=== PATIENT | male | born 1970 | race Two or more races ===

== ENCOUNTER 2025-03-09 10:58 | Emergency (ER) | payer BC, SELFPAY ==
[2025-03-09] VITALS (11 sets, daily range): BP systolic 142–174; BP diastolic 92–123; PULSE 66–78; TEMP 36.4; O2SAT 96–99; BMI 30.5
--- NOTE | 2025-03-09 11:06 | XR_ITS ---
The [place] [id number] Patient Name: JOSEFINA MERRITT MRN: [id number] date: 1970 Sex: M Assigned Patient Location: ED.MAIN Current Patient Location: ED.MAIN Accession/Order Number: [id number] Exam Date: 03/09/2025 11:20 Report Date: 03/09/2025 11:45 At the request of: SLUEMAN KAHN MD Procedure: XR chest 1V PORTABLE AP ERECT CHEST 0710 hours CLINICAL HISTORY: Chest pain today COMPARISON: None A large defibrillator pad overlies the central left chest. The heart is top normal in size. There is no vascular congestion. No consolidation is seen. There is no effusion or pneumothorax. The osseous structures are intact. XR/XR chest 1V IMPRESSION: NO ACUTE FINDINGS Impression dictated by: Faye Galeas M.D. 03/09/2025 11:45 AM Dictation Location: [place] [address] Electronically authenticated by: [id number] Y Date: 03/09/2025 11:45
--- NOTE | 2025-03-09 11:06 | ECG_ITS ---
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 Measurements Intervals [place] Rate: 63 P: 47 NC: 198 QRS: -4 QRSD: 110 T: 80 QT: 392 QTc: 400 Interpretive Statements 1100 Sinus rhythm 4136 Possible anterior injury or acute infarct 4636 Possible inferior injury or acute infarct STEMI 9150 abnormal ECG No previous ECG available for comparison Electronically Signed On 03-09-2025 13:16:29 EDT by GLEN DALEY M.D.
--- OUTSIDE RECORDS SUMMARY | 2025-03-09 11:14 | XMS_ITS | Clinical Summary ---
Author Organization [employer] tem Address [facility] [place]-[id number] [address] [place] [address] Care Team Providers Care Retail Security Professional Name Role Phone Radha Evangelista MD Primary Care Provider [phone] Allergies Active Allergy Reactions Criticality Noted Date Comments No Known Drug Allergies 10/17/2016 Medications albuterol (PROVENTIL HFA;VENTOLIN HFA) 90 mcg/actuation inhaler Inhale 2 puffs every 4 (four) hours as needed. 5 Active fexofenadine (EDWARDO) 180 mg tabletIndications :Acute bronchitis, unspecified organism Take 1 tablet (180 mg total) by mouth in the morning. 30 tablet 5 Active famotidine (PEPCID) 40 mg tabletIndications :Persistent cough for 3 weeks or longer TAKE 1 TABLET BY MOUTH EVERY DAY AT NIGHT 90 tablet 5 Active lisinopriL (PRINIVIL,ZESTRIL ) 10 mg tabletIndications :Essential hypertension TAKE 1 TABLET (10 MG TOTAL) BY MOUTH IN THE MORNING 90 tablet 1 5 Active Active Problems Problem Noted Date Diagnosed Date Persistent cough for 3 weeks or longer 5 Assessment & Plan (11/27/2024 11:51 PM EDT): Continue with fexofenadine 180 mg 1 tablet daily for allergy symptoms. Description of symptoms suggestive of silent reflux with dry mouth, sore throat and cough when lays down, start on famotidine 40 mg nightly to help with acid reduction If symptoms persist despite treatment will consider pulmonary function testing or inhaled steroids to help with symptoms Acute bronchitis 08/20/2024 Assessment & Plan (09/04/2024 11:36 PM EDT): Persistent symptoms with wheezing and dyspnea. Given depomedrol 40 mg IM in right buttock today in office then start on medrol dosepak following directions. Start on doxycycline 100 mg 1 tablet twice daily for 7 days and edwardo 180 mg 1 tablt daily for upper respiratory symptoms. Given samples of OTC cough medication and tessalon perles to take for cough suppression Assessment & Plan (08/20/2024 2:22 PM EDT): Patient already taking antibiotic amoxicillin for on different condition. There is no reason at this time to prescribe a different antibiotic. Patient to start on oral prednisone 20 mg 1 tablet daily for 5 days for inflammation the bronchial tubes. Use Mucinex DM or other ouri-gfn-mrnqxfu cough suppressants as needed for symptom control. Use albuterol inhaler 2 puffs every 6 hours as needed for wheezing, shortness of breath Hypertension 11/07/2016 Seasonal allergic rhinitis due to pollen 017 Allergic 10/17/2016 Encounters Date Type Department Care Team Description 01/17/2025 Refill [facility] [address] [place] [phone] Radha Evangelista MD Essential hypertension 12/20/2024 Refill [facility] [address] [place] [address] [place] [phone] Morgan De Santiago, DO Persistent cough for 3 weeks or longer from Last 3 Months Immunizations Immunization Administration Dates Next Due Influenza, Injectable, quadr ivalent (PF) 04/09/2023,06/06/2021,02/24/2020,2017 Family History Medical History Relation Name Comments Asthma Father Diabetes Mother Heart disease Mother Hypertension Mother Relation Name Status Comments Father Alive Mother Alive Social History Tobacco Use Types Packs/Day Years Used Date Smoking Tobacco: Never Smokeless Tobacco: Never Tobacco Cessation:Counseling Given: Not Answered Alcohol Use Standard Drinks/Week Comments Yes 0 (1 standard drink = 0.6 oz pur e alcohol) occasional PHQ-2 Answer Date Recorded Total Score 0 11/27/2024 Childcare Answer Date Recorded Childcare Unknown 11/06/2018 Employment Answer Date Recorded Employment Unknown 11/06/2018 Hunger Screening Answer Date Recorded Within the past 12 months we worried whether our food would run out before we got money to buy more. Never True 11/27/2024 Within the past 12 months th e food we bought just didn't last and we didn't have money to get more. Never True 11/27/2024 Purpose - Life Answer Date Recorded Purpose and direction in life Unknown Sex and Gender Information Value Date Recorded Sex Assigned at Not on file Legal Sex Male 11:58 AM EDT Gender Identity Not on file Sexual Orientation Not on file Last Filed Vital Signs Vital Sign Reading Time Taken Comments Blood Pressure 128/80 11/27/2024 3:00 PM EDT Pulse 84 11/27/2024 3:00 PM EDT Temperature 36.7 C (98.1 F) 11/27/2024 3:00 PM EDT Respiratory Rate 18 04/09/2023 8:08 AM EST Oxygen Saturation 98% 11/27/2024 3:00 PM EDT Inhaled Oxygen Concentration - - Weight 90.5 kg (199 lb 9.6 oz) 11/27/2024 3:00 P M EDT Height 157.5 cm (5' 2.01 ) 11/27/2024 3:00 PM ED T Body Mass Index 36.5 11/27/2024 3:00 PM EDT Plan of Treatment Health Maintenance Due Date Last Done Comments Adult BMI Follow Up Plan 1987 DTaP,Tdap and Td Vaccines (1 - Tdap) 1988 Zoster (Shingles) Vaccine (1 of 2) 2019 COVID-19 Vaccine (3 - 2024-2 6 season) 2025 01/03/2021, 12/12/2020 Influenza Vaccine 01/26/2025 04/09/2023, , 02/24/2020, Additional history exists Tobacco Screening 09/04/2025 09/04/2024 Adult BMI Screening 11/27/2025 11/27/2024 Depression Screening 11/27/2025 11/27/2024 Medical Devices Not on file Insurance ANTHEM Care Teams Retail Security Professional Relationship Specialty Start Date End Date Radha Evangelista MD [address] [place] [address] PCP - General Internal Medicine 04/09/23
--- OUTSIDE RECORDS SUMMARY | 2025-03-09 11:14 | XMS_ITS | Encounter Summary ---
Author Organization [employer] Address [facility]-[id number] [address] [place] [address] Care Team Providers Care Engine Lathe Operator Name Role Phone Radha Evangelista MD Primary Care Provider [phone] Encounter Details Date Type Department Care Team (Late st Contact Info) Description 05/11/2021 Telephone [facility] [address] [place] [address] Geovanna White CMA Social History Tobacco Use Types Packs/Day Years Used Date Smoking Tobacco: Never Smokeless Tobacco: Never Alcohol Use Standard Drinks/Week Comments Yes 0 (1 standard drink = 0.6 oz pur e alcohol) occasional PHQ-2 Answer Date Recorded Total Score 0 06/02/2020 Childcare Answer Date Recorded Childcare Unknown 11/06/2018 Employment Answer Date Recorded Employment Unknown 11/06/2018 Purpose - Life Answer Date Recorded Purpose and direction in life Unknown Sex and Gender Information Value Date Recorded Sex Assigned at Not on file Legal Sex Male 11:58 AM EDT Gender Identity Not on file Sexual Orientation Not on file COVID-19 Exposure Response Date Recorded In the last month, have you been in contact with someone who was confirmed or suspected to have Coronavirus / COVID-19? No / Unsure 04/30/2021 9:00 AM EST documented as of this encounter Miscellaneous Notes * Telephone Encounter - Geovanna White CMA - 05/11/2021 3:50 PM EST ----- Message from TAWNY Hameed sent at 05/04/2021 1:43 PM EST ----- Cholesterol slightly elevated at 204- concentrate on a low fat diet & exercise; glucose elevated at 113- patient should limit his carbohydrates and we will check his A1C at his appointment in May * Telephone Encounter - Geovanna White CMA - 05/11/2021 3:50 PM EST lvm for patient to call me back. documented in this encounter Plan of Treatment Not on file documented as of this encounter Visit Diagnoses Not on filedocumented in this encounter Additional Health Concerns Assessment Noted Time PHQ-9 Depression Total Score: 0 06/02/19 21 1:00 PM EST documented as of this encounter Care Teams Engine Lathe Operator Relationship Specialty Start Date End Date Radha Evangelista MD [address] [facility] [address] PCP - General Internal Medicine 04/09/23 documented as of this encounter
--- OUTSIDE RECORDS SUMMARY | 2025-03-09 11:14 | XMS_ITS | Encounter Summary ---
Author Organization [facility] Address [facility]-[id number] [address] [place] [address] Care Team Providers Care Professor Of Visual Arts Name Role Phone Radha Evangelista MD Primary Care Provider [phone] Reason for Visit * Reason Comments Med Refill Encounter Details Date Type Department Care Team (Late st Contact Info) Description 08/01/2022 Refill [facility] [address] [place] [address] [place] [phone] Jazzmine Aldana APRN-CNP [address] [place] [address] [address] [place] [id number] Essential hypertension Social History Tobacco Use Types Packs/Day Years Used Date Smoking Tobacco: Never Smokeless Tobacco: Never Alcohol Use Standard Drinks/Week Comments Yes 0 (1 standard drink = 0.6 oz pur e alcohol) occasional PHQ-2 Answer Date Recorded Total Score 0 10/20/2021 Childcare Answer Date Recorded Childcare Unknown 11/06/2018 Employment Answer Date Recorded Employment Unknown 11/06/2018 Purpose - Life Answer Date Recorded Purpose and direction in life Unknown Sex and Gender Information Value Date Recorded Sex Assigned at Not on file Legal Sex Male 11:58 AM EDT Gender Identity Not on file Sexual Orientation Not on file documented as of this encounter Miscellaneous Notes * Telephone Encounter - TAWNY Hameed - 08/01/2022 12:23 AM EST Patient missed his last appointment and will need to schedule an appointment before the 30 day Rx runs out * Telephone Encounter - Johanne Garcia CMA - 08/01/2022 12:23 AM EST Tried to call patient but no answer so I left a voicemail. documented in this encounter Plan of Treatment Not on file documented as of this encounter Visit Diagnoses Diagnosis Essential hypertension Unspecified essential hypertension documented in this encounter Additional Health Concerns Assessment Noted Time PHQ-9 Depression Total Score: 0 10/21/19 22 4:11 PM EDT documented as of this encounter Care Teams Professor Of Visual Arts Relationship Specialty Start Date End Date Radha Evangelista MD [address] [facility] [address] PCP - General Internal Medicine 04/09/23 documented as of this encounter
--- OUTSIDE RECORDS SUMMARY | 2025-03-09 11:14 | XMS_ITS | Encounter Summary ---
Author Organization [employer] Address [facility] [place]-[id number] [address] [place] [address] Care Team Providers Care Breastfeeding Peer Counselor Name Role Phone Radha Evangelista MD Primary Care Provider [phone] Encounter Details Date Type Department Care Team (Late st Contact Info) Description 05/04/2021 Telephone [facility] [address] [place] [address] [place] [address] Geovanna White CMA Social History [...] Telephone Encounter - Geovanna White CMA - 05/04/2021 3:35 PM EST ----- Message from TAWNY Hameed sent at 05/04/2021 1:43 PM EST ----- Cholesterol slightly elevated at 204- concentrate on a low fat diet & exercise; glucose elevated at 113- patient should limit his carbohydrates and we will check his A1C at his appointment in May * Telephone Encounter - Geovanna White CMA - 05/04/2021 3:35 PM EST lvm for patient to call us back for results. * Telephone Encounter - Geovanna White CMA - 05/04/2021 3:35 PM EST ----- Message from TAWNY Hameed sent at 05/04/2021 1:43 PM EST ----- Cholesterol slightly elevated at 204- concentrate on a low fat diet & exercise; glucose elevated at 113- patient should limit his carbohydrates and we will check his A1C at his appointment in May * Telephone Encounter - Geovanna White CMA - 05/04/2021 3:35 PM EST lvm for patient to call back. documented in this encounter Plan of Treatment Not on file documented as of this encounter Visit Diagnoses Not on filedocumented in this encounter Additional Health Concerns Assessment Noted Time PHQ-9 Depression Total Score: 0 06/02/19 21 1:00 PM EST documented as of this encounter Care Teams Breastfeeding Peer Counselor Relationship Specialty Start Date End Date Radha Evangelista MD [address] [place] [address] PCP - General Internal Medicine 04/09/23 documented as of this encounter
--- OUTSIDE RECORDS SUMMARY | 2025-03-09 11:14 | XMS_ITS | Encounter Summary ---
Author Organization [facility] [facility] Address [id number] [address] [place] [address] Care Team Providers Care Nutrition Manager Name Role Phone Radha Evangelista MD Primary Care Provider [phone] Reason for Visit * Reason Comments Med Refill Encounter Details Date Type Department Care Team (Late st Contact Info) Description 11/29/2020 Refill [facility] [address] [place] [address] [place] [phone] Jazzmine Aldana, [facility] [address] [place] [address] [address] [place] [id number] Essential hypertension Social History Tobacco Use Types [...] on file documented as of this encounter Plan of Treatment Not on file documented as of this encounter Visit Diagnoses Diagnosis Essential hypertension Unspecified essential hypertension documented in this encounter Additional Health Concerns Assessment Noted Time PHQ-9 Depression Total Score: 0 06/02/19 21 1:00 PM EST documented as of this encounter Care Teams Nutrition Manager Relationship Specialty Start Date End Date Radha Evangelista MD [address] [facility] [address] PCP - General Internal Medicine 04/09/23 documented as of this encounter
--- OUTSIDE RECORDS SUMMARY | 2025-03-09 11:14 | XMS_ITS | Encounter Summary ---
Author Organization [facility] [employer] Address [facility]-[id number] [address] [place] [address] Care Team Providers Care Torpedoman'S Mate Name Role Phone Radha Evangelista MD Primary Care Provider [phone] Reason for Visit * Reason Onset Date Comments Med Refill 10/21/2019 Encounter Details Date Type Department Care Team (Late st Contact Info) Description 10/21/2019 Refill [facility] [address] [place] [address] [phone] Jazzmine Aldana, [facility] [address] [place] [address] [address] [place] [id number] Essential hypertension Social History Tobacco Use Types Packs/Day Years Used Date Smoking Tobacco: Never Smokeless Tobacco: Never Alcohol Use Standard Drinks/Week Comments Yes 0 (1 standard drink = 0.6 oz pur e alcohol) occasional PHQ-2 Answer Date Recorded PHQ-2 Score 0 02/20/2019 Childcare Answer Date Recorded Childcare Unknown 11/06/2018 Employment Answer Date Recorded Employment Unknown 11/06/2018 Sex and Gender Information Value Date Recorded Sex Assigned at Not on file Legal Sex Male 11:58 AM EDT Gender Identity Not on file Sexual Orientation Not on file COVID-19 Exposure Response Date Recorded In the last month, have you been in contact with someone who was confirmed or suspected to have Coronavirus / COVID-19? No / Unsure 10/21/2019 7:59 AM EDT documented as of this encounter Plan of Treatment Not on file documented as of this encounter Visit Diagnoses Diagnosis Essential hypertension Unspecified essential hypertension documented in this encounter Additional Health Concerns Assessment Noted Time PHQ-9 Depression Total Score: 0 02/21/20 19 3:00 PM EDT documented as of this encounter Care Teams Torpedoman'S Mate Relationship Specialty Start Date End Date Radha Evangelista MD [address] [facility] [place] [address] PCP - General Internal Medicine 04/09/23 documented as of this encounter
[2025-03-09] MEDS: ASPIRIN 81 MG TAB.CHEW 324 MG PO (11:15)
[2025-03-09] MEDS: TICAGRELOR 90 MG TABLET 180 MG PO (11:15)
[2025-03-09 11:17] LABS: Hematocrit 45.0 % (42.0-54.0); Hemoglobin 16.2 g/dL (14.0-18.0); Immature Granulocytes Abs Auto 0.03 10^3/uL (0.00-0.03); Immature Granulocytes Pct Auto 0.3 % (0.0-0.5); Lymphocytes Absolute Auto 1.7 10^3/uL (1.2-3.8); Mean Corpuscular HGB Conc 36.0 g/dL (29.9-35.2); Mean Corpuscular Hemoglobin 32.4 pg (25.9-34.0); Mean Corpuscular Volume 90.0 fL (80.0-94.0); Platelet Count 260 10^3/uL (150-450); Red Blood Count 5.00 10^6/uL (4.70-6.10); White Blood Count 10.5 10^3/uL (4.0-11.0)
--- NOTE | 2025-03-09 11:18 | ED_ITS ---
HPI HPI - General Adult General Chief complaint: Chest Pain Stated complaint: CHEST PAIN Time Seen by Provider: 03/09/25 10:59 Source: patient Mode of arrival: walk-in Limitations: no limitations History of Present Illness HPI narrative: 54-year-old male presents for 2 hours of chest pain. It is all the way across his chest and otherwise does not radiate. It started while he was working outside doing some yard work. He has never had pain like this before. No fever or cough or injury. He does not complain of back pain. He feels a little bit short of breath but does not have palpitations and did not have syncope or presyncope. He has no personal history of CAD. Related Data Home Medications ?Medication ?Instructions ?Recorded ?Confirmed lisinopril 10 mg tablet 10 mg PO QDAY 03/09/2503/09 Allergies Allergy/AdvReac Type Severity Reaction Status Date / Time No Known Drug Allergies Allergy Verified 03/09/25 11:04 Opioid HPI Opioid Management Most Recent Opioid Data: Last Pain Scale 9 Today, 11:04 Review of Systems ROS Narrative A ten point review of systems is negative except as noted above. PFSH PFSH Social History Little interest or pleasure in doing things: not at all Feeling down, depressed, or hopeless: not at all Exam Narrative Exam Narrative: Nurses note and vital signs reviewed and patient is not hypoxic. General:The patient appears no acute distress. Skin:Warm, dry, no pallor noted.There is no rash noted. Head:Normocephalic, atraumatic Eye: Normal conjunctiva, no drainage Ears, Nose, Mouth, and Throat: oral mucosa is moist. Nares patent. Cardiovascular:Regular Rate and Rhythm Respiratory:Patient is in no distress, no accessory muscle use, lungs are clear to auscultation, no wheezing, rales or rhonchi Back:non-tender GI: Soft and nontender Musculoskeletal: The patient has no evidence of calf tenderness, no pitting edema, symmetrical pulses noted bilaterally Neurological:A&O, normal speech Psychiatric:Cooperative Constitutional Vital Signs, click to edit/add: Last Vital Signs Temp 97.6 F 03/09/25 11:04 Pulse 76 03/09/25 11:04 Resp 18 03/09/25 11:04 BP 158/100 H 03/09/25 11:04 Pulse Ox 98 03/09/25 11:04 O2 Del Method Room Air 03/09/25 11:04 Course Vital Signs Vital signs: Vital Signs Temperature 97.6 F 03/09/25 11:04 Pulse Rate 76 03/09/25 11:04 Respiratory Rate 18 03/09/25 11:04 Blood Pressure 158/100 H 03/09/25 11:04 Pulse Oximetry 98 03/09/25 11:04 Oxygen Delivery Method Room Air 03/09/25 11:04 Temperature 97.6 F 03/09/25 11:04 Pulse Rate 76 03/09/25 11:04 Respiratory Rate 18 03/09/25 11:04 Blood Pressure 158/100 H 03/09/25 11:04 Pulse Oximetry 98 03/09/25 11:04 Oxygen Delivery Method Room Air 03/09/25 11:04 Medical Decision Making MDM Narrative Medical decision making narrative: EKG shows STEMI, inferior lateral. I spoken to Dr. Calderon and the patient is given aspirin, heparin, and Brilinta. He was also given IV labetalol for elevated blood pressure. He will be transported directly to [facility] for emergent heart catheterization and this was discussed with the patient thoroughly. He is stable and agreeable for transfer. Findings are discussed thoroughly with his as well. Differential Diagnosis Differential Diagnosis: STEMI, NSTEMI, chest pain Lab Data Lab results reviewed: Yes I reviewed the patient's lab results Labs: Lab Results 03/09/25 Range/Units 11:06 WBC 10.5 (4.0-11.0) 10^3/uL RBC 5.00 (4.70-6.10) 10^6/uL Hgb 16.2 (14.0-18.0) g/dL Hct 45.0 (42.0-54.0) % MCV 90.0 (80.0-94.0) fL MCH 32.4 (25.9-34.0) pg MCHC 36.0 H (29.9-35.2) g/dL RDW 11.2 (11.0-15.0) % Plt Count 260 (150-450) 10^3/uL MPV 9.2 L (9.5-13.5) fL Neut % (Auto) 74.3 (43.0-75.0) % Lymph % (Auto) 16.4 L (20.5-60.0) % [place] % (Auto) 5.9 (1.7-12.0) % Eos % (Auto) 2.4 (0.9-7.0) % Baso % (Auto) 0.7 (0.2-2.0) % Neut # (Auto) 7.8 H (1.4-6.5) 10^3/uL Lymph # (Auto) 1.7 (1.2-3.8) 10^3/uL [place] # (Auto) 0.6 (0.3-0.8) 10^3/uL Eos # (Auto) 0.3 (0.0-0.7) 10^3/uL Baso # (Auto) 0.1 (0.0-0.1) 10^3/uL Abs Immat Gran (auto) 0.03 (0.00-0.03) 10^3/uL Imm/Tot Granulo (auto) 0.3 (0.0-0.5) % Imaging Data Chest x-ray: My impression: No acute findings ECG Data Attestation: I personally reviewed and interpreted this ECG as follows: (KG my interpretation shows inferior lateral ST segment elevation consistent with STEMI) Critical Care Time Critical Care Time Critical Care Time: Yes Total Critical Care Time: 40 Attestation: Due to the high probability of sudden and clinically significant deterioration in the patient's condition he/she required the highest level of my preparedness to intervene urgently I provided critical care time including documentation time, medication orders and management, reevaluation, vital sign assessment, ordering and reviewing of lab tests, ordering and reviewing of x-ray studies, and admission orders. Aggregate critical care time is 40 minutes including only time during which I was engaged in work directly related to his/her care and did not include time spent treating other patients simultaneously. Discharge Plan Discharge Chief Complaint: Chest Pain Clinical Impression: ST elevation myocardial infarction (STEMI) Patient Disposition: [facility] Time of Disposition Decision: 11:17 Discharge Location: [facility] Condition: Serious Mode of Transportation: EMS
[2025-03-09] MEDS: HEPARIN SODIUM (PORCINE) 5,000 UNIT/ML VIAL 4000 UNIT IV (11:27)
[2025-03-09] MEDS: HEPARIN SODIUM,PORCINE/D5W 25,000 UNIT/500 ML IV.SOLN 18 UNIT IV (11:29)
[2025-03-09 11:34] LABS: Anion Gap 11.3; Blood Urea Nitrogen 19.0 mg/dL (7.0-18.0); Calcium 8.8 mg/dL (8.5-10.1); Carbon Dioxide 27.6 mmol/L (21.0-32.0); Chloride 103 mmol/L (98-107); Estimated GFR (African America >60 (>=60 mL/min/1.73m^2); Estimated GFR (Non-African Ame >60 (>=60 mL/min/1.73m^2); Glucose 204 mg/dL (74-106); Potassium 3.9 mmol/L (3.5-5.1); Sodium 138 mmol/L (136-145)
[2025-03-09] MEDS: MORPHINE SULFATE 4 MG/ML VIAL IV (11:34)
[2025-03-09 11:36] LABS: INR 1.05; Partial Thromboplastin Time 22.7 sec (22.3-36.2); Prothrombin Time 11.1 sec (9.0-11.6)
--- NOTE | 2025-03-09 12:00 | PC.NURSE ---
[facility] here for transport
== END 2025-03-09 12:08 | disposition short-term general hospital (02) ==
PROVIDERS: Emergency Provider Emergency Medicine; Family Provider Family Medicine
DX: I21.3 ST elevation (STEMI) myocardial infarction of unspecified site (principal); R07.89 Other chest pain; R06.02 Shortness of breath
CPT/HCPCS: 36415; 71045; 80048; 84484; 85025; 85610; 85730; 93005; 96374; 96375; 99285; J1644; J2270